=== PATIENT | female | born 1955 | race Caucasian/White ===

== ENCOUNTER 2019-03-23 06:26 | Day surgery (SDC) | payer BC, OTHER ==
[2019-03-22 15:27] LABS: Absolute Lymphocytes (CBC) 1.7 K/uL (0.7-4.9); Basophils % 0.9 % (0-1.3); Hematocrit 40.9 % (36.0-45.0); Lymphocytes % 23.7 % (15.3-44.8); MPV 9.7 fL (7.6-11.3); RBC Red Blood Cell Count 4.33 M/uL (3.86-4.86)
[2019-03-22 15:48] LABS: Potassium 3.7 mmol/L (3.5-5.1)
[2019-03-23] MEDS ORDERED: Ringers Lactate 1,000 ML IV ONE (06:54)
[2019-03-23] MEDS ORDERED: CIPROFLOXACIN 400mg IV 400 MG/200 ML BAG IV ONE (06:54)
[2019-03-23] MEDS ORDERED: FENTANYL CITR 100 MCG/2 ML ONE (07:09)
[2019-03-23] MEDS ORDERED: propofoL 200 MG/20 ML VIAL IV ONE (07:09)
[2019-03-23] MEDS ORDERED: LIDOCAINE 2% MPF 5 ML VIAL ONE (07:10)
[2019-03-23] MEDS ORDERED: MIDAZOLAM HCL 2 MG/2 ML INJ ONE (07:10)
[2019-03-23] MEDS ORDERED: Phenylephrine HCl 10 MG/ML 1 ML VIAL ONE (08:01)
[2019-03-23] MEDS ORDERED: NS 0.9% VIAL 30 ML ONE (08:02)
[2019-03-23] MEDS ORDERED: COLLAGENASE 30 GM OINTMENT TOP ONE (08:22)
--- NOTE | 2019-03-23 08:29 | P.BOP ---
Preoperative diagnosis: Necrotic ulcers bilateral lower extremities, venous stasis ulcers Postoperative diagnosis: same Primary procedure: Excisional sub debridment necrotic ulcer: 1. Right ant leg 4.5x4cm Secondary procedure: 2. right mi proximal 3x2 cm, 3. right posterior leg 2x1.5cm Other procedure(s): 4. left leg 2x1.5 cm Estimated blood loss: <10cc Specimen: necrotic tissue Findings: as above Anesthesia: General Complications: None Transferred to: Recovery Room Condition: Good
[2019-03-23] MEDS ORDERED: HYDROMORPHONE HCL 2 MG/ML inj ONE (09:02)
[2019-03-23 09:27] VITALS: TEMP 97.4
[2019-03-23 14:07] VITALS: BP 106/62; O2SAT 97
--- NOTE | 2019-03-23 19:13 | DS ---
Date of Discharge: 03/23/2019 Diagnosis: Necrotic ulcers bilateral lower extremities with venous stasis ulcers. Procedure: Excisional debridement of necrotic ulcer bilateral lower extremities. Disposition: Home. She has already taken p.o. antibiotics. She already has pain medication at home including the Santyl . We asked her to do dressing changes daily, leg elevation. May take a shower with dressings off. CARLA/LEIGH ANN Voice ID: [id number] Report ID: [id number]
--- NOTE | 2019-03-23 19:16 | OP ---
Date of Procedure: 03/23/2019 Surgeon: Jac Martinez MD Preoperative Diagnosis: Necrotic ulcers bilateral lower extremity with venous stasis disease ulcers. Postoperative Diagnosis: Necrotic ulcers bilateral lower extremity with venous stasis disease ulcers . Procedures: 1.Excisional subcutaneous debridement of necrotic ulcer right anterior leg 4.5 x 4 cm. 2.Excisional subcutaneous debridement of necrotic ulcer right mid proximal leg 3 x 2 cm. 3.Excisional subcu debridement necrotic ulcer right posterior leg 2 x 1.5 cm. 4.Excisional subcu debridement of necrotic ulcer left leg 2 x 1.5 cm. Specimens: Necrotic tissue. Anesthesia: General plus local. Findings: Necrotic tissue present. Indications: This is the case of a 63-year-old person comes to us with necrotic ulcers bilateral low er extremities, very tender associated with varicosities. She is not sure if this was just initiated by just trauma since she worked in her flower bed a lot and was coming here and there, but she notic ed that has not healed in ages and all this large area has become necrotic. The patient was seen in the wound healing center. Very tender, could not be debrided there. She has to be done under anesth etic. She did not want local anesthetic there at the [facility], so we have to take her to surgery and put her to sleep. The benefit and risks of debridement fully explained, which included but are not limited to infection, bleeding, damage to adjacent structures as complication, nonhealing wound, [place], and even . She also understands this may not relieve the symptoms. She might need more than one surgical intervention. She will require wound care. She was also advised the importan ce of losing weight and also diet and also following up with the [facility] or try to fix her vein issues since this may be complicating the initial pictures and given her venous stasis ulcer that may require evaluation of her veins. She understands that. Description Of Procedure: Patient was brought to the operating room, placed in supine position. Ane sthesia was done without complication. The areas of concern were previously marked by me and the pat ient in the holding room. Bilateral lower extremity was prepped and draped in sterile fashion. A ti me-out was called. We proceeded to use an 11 blade to clean each ulcer. Please refer to above full location. Each ulcer was done individually. After we cleaned each ulcer, obtained hemostasis, and i njected local anesthetic the area was covered with Santyl and gauze. Patient after tolerated the pro cedure well. Patient was sent to recovery in stable condition. GAVINO Voice ID: [id number] Report ID: [id number]
== END 2019-03-23 11:22 | disposition home or self-care (01) ==
LOC: OR 06:26
PROVIDERS: ATTEND Surgery
PROC: 0JBN0ZZ Excision of Right Lower Leg Subcutaneous Tissue and Fascia, Open Approach (ICD-10-PCS; 2019-03-23)
PROC: 0JBP0ZZ Excision of Left Lower Leg Subcutaneous Tissue and Fascia, Open Approach (ICD-10-PCS; principal; 2019-03-23 07:30)
DX: I96 Gangrene, not elsewhere classified (principal); I87.8 Other specified disorders of veins
CPT/HCPCS: 11042; 11045; 85025; 80048; 36415; 88304; J2704; J2370; J2250; J1170; J3010; J7120; J0744; 88305; J3590